=== PATIENT | male | born 1970 | race Caucasian/White ===

== ENCOUNTER → 2025-01-11 10:45 | Outpatient (BNV) | payer OTHER, SELFPAY | PROVIDERS: Visit Provider Psychiatry & Neurology Psychiatry | DX: F33.2 Major depressive disorder, recurrent severe without psychotic features (principal); F34.89 Other specified persistent mood disorders; F63.89 Other impulse disorders; F43.10 Post-traumatic stress disorder, unspecified; F12.90 Cannabis use, unspecified, uncomplicated | CPT/HCPCS: 99214 ==

== ENCOUNTER → 2025-01-13 07:22 | Outpatient (REF) | payer OTHER, SELFPAY ==
--- OUTSIDE RECORDS SUMMARY | 2025-01-13 07:25 | XMS_ITS | Clinical Summary ---
Author Organization [facility] [address] [place] [address] [place] [phone] Phone Care Team Providers Care Circuit Board Assembler Name Role Phone Braden Lane MD Primary Care Provider [phone] Allergies No known active allergies Medications tadalafiL (Cialis) 10 mg tabletIndicatio ns:Low serum testosterone Take 1 tablet (10 mg total) by mouth 1 (one) time each day if needed for erectile dysfunction. 6 tablet 1 08/27/19 25 Active Additional Information Patient not taking.Reported on 12/21/2024 sertraline (ZOLOFT) 100 mg tablet Take 2 tablets (200 mg total) by mouth 1 (one) time each day. 180 tablet 1 09/10/19 25 Active fluticasone propionate (FLONASE) 50 mcg/actuation nasal spray Administer 2 sprays into each nostril 1 (one) time each day. 16 g 2 11/16/19 25 Active predniSONE (DELTASONE) 10 mg tablet Take 3 tabs for 3 days, take 2 tabs for 3 days, take 1 tab for 3 days 18 tablet 12/22/19 25 Active carboxymethylce llulose 1 % ophthalmic solution Administer 1 drop into both eyes 2 (two) times a day. 3 mL 12/22/19 25 2024 Active hydrOXYzine HCL (ATARAX) 25 mg tablet Take 1 tablet (25 mg total) by mouth every 8 (eight) hours if needed for anxiety. 60 each 12/22/19 25 2024 Active cetirizine-pseu doephedrine (ZyrTEC-D) 5-120 mg per 12 hr tablet TAKE 1 TABLET BY MOUTH TWICE DAILY 60 tablet 5 12/29/19 25 Active loratadine (CLARITIN) 10 mg tablet Take 1 Tablet by mouth daily for 180 days. 12/04/19 24 2024 Discontinued cetirizine-pseu doephedrine (ZyrTEC-D) 5-120 mg per 12 hr tablet Take by mouth. Take 1 Tablet by mouth 2 times daily for 360 days. 12/04/19 24 2024 Discontinued cetirizine-pseu doephedrine (ZyrTEC-D) 5-120 mg per 12 hr tablet Take 1 tablet by mouth 2 (two) times a day. 12/04/19 24 2024 Discontinued(D uplicate order) fluticasone propionate (FLONASE) 50 mcg/actuation nasal spray Administer 2 sprays into each nostril 2 (two) times a day. 12/04/19 24 2024 Discontinued(D uplicate order) Active Problems Problem Noted Date Diagnosed Date Depression 06/03/2023 Hyperlipidemia 06/03/2023 Low serum testosterone 06/03/2023 Severe obesity (BMI 35.0-39. 9) with comorbidity (CMS/[facility] V24, CMS/[facility] V28) 07/15/2016 Folliculitis 07/15/2016 Encounters Date Type Department Care Team Description 12/21/2024 11:30 AM EDT Office Visit Adult Medicine [address] [phone] Stella Quinn NP Facial swelling (Primary Dx); Depression, unspecified depression type; Erectile dysfunction, unspecified erectile dysfunction type; Anxiety 12/21/2024 Nurse Triage Adult Medicine [address] [phone] MD 12/20/2024 Telephone Adult Medicine [address] [phone] Mago Cazares RN 12/20/2024 Nurse Triage Adult Medicine [address] [phone] Braden Laen MD from Last 3 Months Social History Tobacco Use Types Packs/Day Years Used Date Smoking Tobacco: Never Smokeless Tobacco: Never Alcohol Use Standard Drinks/Week Comments Not Asked 0 (1 standard drink = 0.6 oz pur e alcohol) Housing Instability Answer Date Recorde d Are you worried that in the next 2 months you may not have stable housing? No 06/09/2024 Food Access & Nutrition Answer Date Rec orded Do you have access to a vari ety of food including fruits and vegetables? Yes 06/09/2024 Access to Healthcare Answer Date Record ed Within the last 3 months, ho w many times did you visit the emergency department for your medical care? 0 06/09/2024 Health Literacy Answer Date Recorded How often do you need to hav e someone help you when you read instructions, pamphlets, or other written material from your doctor or pharmacy? Never 06/09/2024 Caregiver: How often do you need to have someone help you when you read instructions, pamphlets, or other written material from your doctor or pharmacy? Not on file 06/09/2024 Financial Risk Answer Date Recorded How hard is it for you to pa y for the very basics like food, housing, medical care, and air conditioning / heating? Not very hard 06/09/2024 Transportation Answer Date Recorded Has the lack of transportati on kept you from meetings, work, or from getting things needed for daily living? No Has the lack of transportati on kept you from medical appointments or from getting medications? No 06/09/2024 Social Isolation Answer Date Recorded How often do you feel lonely or isolated from th ose around you? Rarely 06/09/2024 Food Risk Answer Date Recorded Within the past 12 months we worried whether our food would run out before we got money to buy more. Never true 06/09/2024 Within the past 12 months th e food we bought just didn't last and we didn't have money to get more. Never true 06/09/2024 Dependent Care Answer Date Recorded Do you need help finding or paying for care for your loved ones. For example, early childhood education coordinator or elderly care for an older adult? No 06/09/2024 Education Answer Date Recorded Do you think completing more education or training, like finishing a GED, going to college, or learning a trade, would be helpful for you? N/A 06/09/2024 Employment and Income Answer Date Recor ded During the last four weeks, have you been actively looking for work? No 06/09/2024 Living Situation Answer Date Recorded What is your living situation? Unrecognized valu e 06/09/2024 Sex and Gender Information Value Date Recorded Sex Assigned at Not on file Legal Sex Male 4:47 AM EST Gender Identity Not on file Sexual Orientation Not on file Obstetrics History Last Filed Vital Signs Vital Sign Reading Time Taken Comments Blood Pressure 117/81 12/21/2024 11:37 AM EDT Pulse 60 12/21/2024 11:37 AM EDT Temperature 35.9 C (96.7 F) 12/21/2024 11:37 AM EDT Respiratory Rate 14 12/21/2024 11:37 AM EDT Oxygen Saturation 97% 12/21/2024 11:37 AM EDT Inhaled Oxygen Concentration - - Weight 97.2 kg (214 lb 3.2 oz) 12/21/2024 11:37 AM EDT Height 167.6 cm (5' 6 ) 12/21/2024 11:37 AM EDT Body Mass Index 34.57 12/21/2024 11:37 AM EDT Plan of Treatment Upcoming Encounters Date Type Department Care Team (Late st Contact Info) Description 01/24/2025 4:00 PM EST Office Visit Adult Medicine [address] [phone] MD [address] [place] [address] Health Maintenance Due Date Last Done Comments Colorectal Cancer Screening: Colonoscopy 1972 DTaP,Tdap,and Td Vaccines (1 - Tdap) 01/29/1991 Hepatitis B Vaccines (1 of 3 - 19+ 3-dose series) 01/29/1991 Pneumococcal Vaccine: 50+ Years (1 of 1 - PCV) 01/29/2022 RSV Immunization Adult Patients (1 - Risk 50-74 years 1-dose series) 01/29/2022 Zoster Vaccines (1 of 2) 01/29/2022 HIV Screening 03/03/2022 Hepatitis C Screening 03/03/2022 COVID-19 Vaccine (1 - 2023-2 5 season) 2024 Influenza Vaccine (#1) 2024 Social Influencers of Health Screening 06/09/2025 06/09/2024 Cholesterol Screening (Lipid Panel) 08/23/2029 08/23/2024, 06/02/2023 Depression Screening Completed 06/09/2024 HIB Vaccines Aged Out No longer eligi ble based on patient's age to complete this topic HPV Vaccines Aged Out No longer eligi ble based on patient's age to complete this topic Hepatitis A Vaccines Aged Out No long er eligible based on patient's age to complete this topic IPV Vaccines Aged Out No longer eligi ble based on patient's age to complete this topic MMR Vaccines Aged Out No longer eligi ble based on patient's age to complete this topic Meningococcal ACWY Vaccine Aged Out N o longer eligible based on patient's age to complete this topic Meningococcal B Vaccine Aged Out No l onger eligible based on patient's age to complete this topic RSV Immunization Patients Under 20 months Aged Out No longer eligible b ased on patient's age to complete this topic Varicella Vaccines Aged Out No longer eligible based on patient's age to complete this topic Procedures Procedure Name Priority Date/Time Associated Diagnosis Comments LIPID PANEL WITH REFLEX TO DIRECT LDL Routine 08/23/2024 7:46 AM EDT Hypercholesterolemi a from Last 3 Months or Most Recently Relevant to Health Maintenance Results * (ABNORMAL) Lipid panel with reflex to direct LDL (08/23/2024 7:46 AM EDT) Cholesterol 260(H) 0 - 200 mg/dL LAB CHEMISTRY METHOD 08/23/2024 10:01 AM EDT [facility] Triglycerides 125 0 - 150 mg/dL LAB CHEMISTRY METHOD 08/23/2024 10:01 AM EDT [facility] HDL 43 >=40 mg/dL LAB CHEMISTRY [facility] LDL Calculated 192(H) 0 - 100 mg/dL LAB CHEMISTRY METHOD 08/23/2024 10:01 AM [facility] VLDL Cholesterol Josiah 25 mg/dL LAB CHEMISTRY METHOD 08/23/2024 10:01 AM EDT [facility] Non HDL Chol. (LDL+VLDL) 217(H) <145 mg/dL LAB CHEMISTRY METHOD 08/23/2024 10:01 AM EDT [facility] Chol/HDL Ratio 6.0(H) 0.0 - 4.4 LAB CHEMISTRY METHOD 08/23/2024 10:01 AM EDT [facility] Blood Venous blood specimen / Unknown Venipuncture / Unknown 08/23/2024 7:46 AM EDT 08/23/2024 9:[address] MD LAB BLOOD ORDERABLES Final Resu lt [facility] ([facility] [address] [place] [address], from Last 3 Months or Most Recently Relevant to Health Maintenance Insurance [facility] Care Teams Circuit Board Assembler Relationship Specialty Start Date End Date Braden Lane MD [address] [place] [phone] PCP - General Internal Medicine 02/02/24
--- NOTE | 2025-01-13 07:39 | ECG_ITS ---
Test Reason : check qt Blood Pressure : */* mmHG Vent. Rate : 71 BPM Atrial Rate : 71 BPM P-R Int : 174 ms QRS Dur : 76 ms QT Int : 372 ms P-R-T Axes : 44 35 44 degrees QTcB Int : 404 ms Normal sinus rhythm Normal ECG No previous ECGs available Referred By: Paula Partida Electronically Signed By: SAMMY VINCENT MD
[2025-01-13 07:41] LABS: MANUAL DIFF FLAG NO
[2025-01-13 07:47] LABS: Hematocrit 43.3 % (42.0-52.0); Hemoglobin 14.0 g/dl (14.0-18.0); Imm Gran Abs Auto 0.03 X10*3/uL (0.00-0.03); Imm Gran Pct Auto 0.4 % (0.0-0.4); Lymphocytes Absolute Auto 1.2 X10*3/uL (1.2-4.9); Mean Corpuscular HGB Conc 32.3 g/dl (31.0-36.0); Mean Corpuscular Hemoglobin 27.4 pg (27.0-33.0); Mean Corpuscular Volume 84.7 fL (80.0-98.0); NRBC Abs Auto 0.000 X10*3/uL (0.0-0.012); NRBC Pct Auto 0.0 /100WBC (0.0-0.2); Platelet Count 190 X10*3/uL (160-400); Red Blood Count 5.11 X10*6/uL (4.60-5.80); White Blood Count 7.3 X10*3/uL (4.8-10.8)
[2025-01-13 08:08] LABS: Alanine Aminotransferase 25 U/L (0-40); Albumin Level 4.5 g/dL (3.5-5.0); Alkaline Phosphatase 86 U/L (39-117); Anion Gap 15 (12-20); Aspartate Amino Transferase 26 U/L (5-37); Blood Urea Nitrogen 22 mg/dL (9-16); Calcium 9.1 mg/dL (8.4-10.2); Carbon Dioxide 23 mmol/L (22-29); Chloride 107 mmol/L (96-108); Cholesterol 209 mg/dL (<200); Estimated Glomerular Filt Rate > 60; HDL Cholesterol 49 mg/dL (>40); Iron 64 mcg/dL (45-160); Magnesium 2.0 mg/dL (1.6-2.6); Percent Iron Saturation 20 % (15-50); Potassium 4.5 mmol/L (3.3-5.1); Sodium 140 mmol/L (135-145); Total Iron Binding Capacity 319 mcg/dL (228-428); Total Protein 7.4 g/dL (6.5-8.0); Triglycerides 132 mg/dL (<150); Unsaturated Iron Binding 255 ug/dL
[2025-01-13 08:22] LABS: Prostate Specific Antigen 0.78 ng/mL (<0.05-4.0)
[2025-01-13 08:23] LABS: Ferritin 169 ng/mL (20-250); Free T4 (Free Thyroxine) 0.79 ng/dL (0.71-1.85); Thyroid Stimulating Hormone 3.33 uIU/mL (0.32-4.0)
[2025-01-13 08:36] LABS: Folate 6.9 ng/mL (> or = 4.0)
[2025-01-18 18:43] LABS: Testosterone, Free 61.0 pg/mL (35.0-155.0)
== END ==
LOC: HO.CARD 07:22
PROVIDERS: PCP Internal Medicine; Visit Provider Psychiatry & Neurology Psychiatry
DX: Z13.6 Encounter for screening for cardiovascular disorders (principal); Z12.5 Encounter for screening for malignant neoplasm of prostate; F34.89 Other specified persistent mood disorders; F63.89 Other impulse disorders; Z13.1 Encounter for screening for diabetes mellitus
CPT/HCPCS: 36415; 80053; 80061; 82306; 82550; 82728; 82746; 83036; 83090; 83540; 83735; 83921; 84146; 84153; 84402; 84403; 84425; 84439; 84443; 84630; 85025; 85652; 93005

== ENCOUNTER → 2025-01-13 07:39 | Outpatient (BNV) | payer OTHER, SELFPAY | PROVIDERS: PCP Internal Medicine; Visit Provider Internal Medicine Cardiovascular Disease | DX: Z13.6 Encounter for screening for cardiovascular disorders (principal) | CPT/HCPCS: 93010 ==

== ENCOUNTER 2025-01-21 10:30 | Outpatient (RCR) | payer OTHER, SELFPAY ==
[2024-12-30 12:05] VITALS: BP 120/68; PULSE 76; TEMP 36.3
[2024-12-30 12:08] VITALS: BMI 32.7
--- NOTE | 2024-12-30 16:07 | HO.PHP ---
Clients case was opened and reviewed in teams.
--- NOTE | 2025-01-01 00:19 | HO.PS.ADMBH ---
HPI Date of Service: 12/31/24 Chief Complaint: depression,PTSD Sources of Information: patient interviewed, chart reviewed and crisis/core team assessment reviewed HPI Narrative: Patient is a , employed 54 yo male who was referred from [facility] crisis for struggles with anxiety in the context of psychosocial stressors at at home and the workplace. He reports a history of occasional anxiety and depressive symptoms and long standing issues with anger, impulsive gambling and says he has relied on daily cannabis use to manage. 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 Does it is a high stress job and his boss is atrocious . Stressors include deterioration of his marriage and adversarial relationship with his 17 yo son whom he describes as oppositional and lazy . He shares that my says I changed noting that he lost 70 lb in past few months which she attributes to stress. She would say I'm angry because she hates me and doesnt want to touch me or love me . He also complains that most of his coworkers and supervisors hate him too. They would also say I', defensive and angry, but has to be loud because I am a little shandra yelling so I need to talk louder to be heard . He endorses passive SI only a few times in the past ever. Dneies any current SI, urge, plan intention. DEnies any history of AH or VH. No history of psychosis or manic symptoms, aside from chronic struggles with low frustation tolerance and anger. Impulsive behaviors are chronic and persistent regardless of mood state. Has been dealing with some medical issues with his PCP who referred him to endocrinology about year and a half ago due to low testosterone. Use them referred for sleep study diagnosed with mild obstructive sleep apnea but was unable to tolerate CPAP so has been sleeping with his head elevated. Past Psychiatric History: No prior IPLOC, PHP, respite, detox/rehab admissions SA: denies SIB: denies Aggression or antisocial behaviors: denies (although says there is a lot of verbal aggression and arguemnts between himself and 17 yo son. Impulsive behaviors, gambling Pertinent developmental hx: Previous diagnoses: Psychiatrist: none Therapist: PCP: Previous trials: CURRENT MEDICATIONS: [facility] Medical History (Updated 01/03/25 @ 19:07 by Paula Partida MD) High cholesterol Prediabetes Sleep apnea Low testosterone Narrative: Overall healthy No chronic health conditions No h/o medical hospitalization for illness or injury Surgeries: denies Seizures: denies Concussions/TBI: x 2 or 3, in childhood - LOC x2 hit wall, fall from seesaw can you fix that from Ht:?5'4 Wt:208 lbs ALL:hayfever Family History: Depression anxiety and addiction in the family His father on are couch ( probably intentional overdose Social History: Lives at home with and 2 sons Diagnostics Vital Signs (24Hr): BMI result Body Mass Index 32.7 Meds/Allergies Meds Home Medications ?Medication ?Instructions ?Recorded ?Confirmed ?Type cetirizine 5 mg-pseudoephedrine ER 1 tab PO BID 12/30/24 12/30/24 History 120 mg tablet,extended release,12hr fluticasone propionate 50 See Rx Instructions .Route .COMPLEX 12/30/24 12/30/24 History mcg/actuation nasal spray,suspension hydroxyzine HCl 25 mg tablet 25 mg PO TID Anxiety 12/30/24 12/30/24 History prednisone 10 mg tablet 10 mg PO BID 12/30/24 12/30/24 History sertraline 100 mg tablet 200 mg PO DAILY 12/30/24 12/30/24 History Allergies Allergies Allergy/AdvReac Type Severity Reaction Status Date / Time No Known Allergies Allergy Verified 12/30/24 12:04 Mental Status Exam Mental Status Exam Narrative: .Alert, oriented, in no acute distress. Calm, cooperative, engaged. No psychomotor agitation or neurovegetative retardation. Eye contact maintained. Mood depressed, affect constricted. Speech normal. Thought process linear, coherent. Thought content related to stressors, transient hopelessness, denies SI or HI. No paranoia or delusional content elicited. No evidence of psychosis. Insight and judgment - fair but adequate. Assessment & Plan Assessment & Plan (1) MDD (major depressive disorder), recurrent severe, without psychosis: Status: Acute Code(s): F33.2 - Major depressive disorder, recurrent severe without psychotic features (2) Other specified persistent mood disorders: Status: Acute Code(s): F34.89 - Other specified persistent mood disorders (3) Other impulse disorders: Status: Acute Code(s): F63.89 - Other impulse disorders Assessment and Plan: r/o ADHDr/o other ICD (4) PTSD (post-traumatic stress disorder): Status: Acute Code(s): F43.10 - Post-traumatic stress disorder, unspecified (5) Cannabis use disorder: Status: Acute Code(s): F12.90 - Cannabis use, unspecified, uncomplicated Plan Admit to [facility] VS reviewed: afebrile, BP 120/68;?76 bpm start Wellbutrin XL 150 mg qam start Trileptal 150 mg BID continue other regular medications Routine lab work as indicated EKG, routine for baseline QTc for medication considerations as indicated UDS as indicated [facility] reviewed Continue to monitor as per protocol Patient educated on: diagnosis, medication risk/benefits and substance abuse Informed Consent: understands Reason for continued partial hosp. stay Substantial Risk for: inability to function and med/psych decompensation Certification I certify that partial hospital treatment is medically necessary due to the symptoms and problems resulting from the patient's mental illness and the failure to treat the patient at the partial hospital level of care would likely result in the patient requiring inpatient psychiatric care which could not be prevented at a less intensive level of care. Time Spent With Patient Time: Total time managing care of this patient today __90__ minutes.
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
[2025-01-07 14:10] VITALS: BP 136/80; PULSE 84
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
--- NOTE | 2025-01-12 07:57 | HO.PHPPROGNO ---
Subjective Subjective Date of Service: 01/12/25 Reason For Visit: depression,PTSD Interim History: Patient requesting to be seen, having high level of anxiety with upcoming court date hearing on Friday. I'm not ready to leave, I'm anxious about everything anticipating discharge from program tomorrow but feeling he is not ready being still amidst medication adjustments with the mood stabilizer. He titrate the evening dose of oxcarbazepine 5 days ago (so now is at 300 mg in am and 450 mg at night) but has not been able to yet increase the morning dose as he notices feeling some spaciness and like being high feeling a little upon waking and more noticeable about 1.5 hrs after his AM dose. We agree to hold off further titration(or any other major medication adjustments until after his court date) to avoid any potential adverse effects or sedation especially for Friday, in court. Zoloft lowered to 100 mg, without issue and would like to continue taper due to ED that has occurred since dose over 50 mg. Continues to stay at hotel, anxious about costs, anxious to be with his family. Worries about continuance of the R.O and not having a place to stay or feeling disconnected from his life. I've been trying to focus on doing everything right . Is on day 14 of not smoking marijuana and relays staying committed to staying off of it. Denies any alcohol or drug use. He has been consistent with his medications, eating, and going to bed by 10pm. He says routines are very difficult for him and is pleased that Wellbutrin might be helpful for some of his ADHD issues. He is attending an anger management course online and anticipates getting a certificate in time for court Friday. He shares concerns that I haven't addressed any of the stuff I came here (to [facility]) to address originally... most of my problems were stemming from work. Trouble with my boss, was having trouble in a lot of the (social) dynamics... I go from 0 to 100, all the time and then just lose it. I also got bad ADHD... it causes problems. There's also been recent changes to his work responsibilities with additional stress added to his workload, like having to travel/commute further away for work has been a major stressor and feels it was truly the work stress that lead to everything blowing up on me at home . Medication Compliance: Yes Side effects from medications: Yes (as noted) Attending Groups: Yes Review of Systems Acute medical concerns: No Mental Status Exam Mental Status Exam Narrative: .Alert, oriented, in no acute distress. Calm, cooperative, engaged, appropriate. No psychomotor agitation or neurovegetative retardation. Eye contact maintained. Mood anxious, depressed, affect intense, reactive, moments of tearfulness, irritability. Speech normal. Thought process ruminative, linear, coherent. Thought content related to stressors, transient hopelessness, denies SI or HI. No gross paranoia or delusional content elicited. No evidence of psychosis. Insight and judgment - fair but adequate. Diagnostics Vital Signs (24Hr): BMI result Body Mass Index 32.7 Assessment & Plan Assessment & Plan (1) MDD (major depressive disorder), recurrent severe, without psychosis: Status: Acute Code(s): F33.2 - Major depressive disorder, recurrent severe without psychotic features (2) Other specified persistent mood disorders: Status: Acute Code(s): F34.89 - Other specified persistent mood disorders (3) Other impulse disorders: Status: Acute Code(s): F63.89 - Other impulse disorders Assessment and Plan: r/o ADHD r/o IED or other ICD (4) PTSD (post-traumatic stress disorder): Status: Acute Code(s): F43.10 - Post-traumatic stress disorder, unspecified (5) Cannabis use disorder: Status: Acute Code(s): F12.90 - Cannabis use, unspecified, uncomplicated Assessment and Plan: in early remission Plan extend PHP - given severity of symptoms and complicating factors, will need more time at program to continue with medication changes continue Wellbutrin XL 150 mg qam (will continue to titrating over weekend, avoiding any med changes prior to court on Friday) continue Trileptal 300 mg/450 mg (will continue to titrating over weekend, avoiding any med changes prior to court on Friday) - we also discussed possibly switching medications if he continues to have issues with side effects, although presently I am hopeful the current SE are mild and I anticipate will olegario kori since we will not move up further on the medication for the next few days taper ZOloft (currently at 100 mg qd) will lower to 75 mg/d this weekend start guanfacine ER 1 mg qd in afternoon today, if not sedating will take in AM with Wellbutrin continue clonazepam 0.5 mg qd prn anxiety (may take 2nd dose for tomorrow and Friday as needed) continue other regular medications Routine lab work - slip given today, will also check testosterone and PSA as his PCP was going to check these as well EKG, routine for baseline QTc for medication pending UDS as indicated VS reviewed: afebrile, BP 120/68;?76 bpm Continue to monitor Patient educated on: diagnosis, medication risk/benefits, substance abuse and therapeutic strategies (discussed also continuing in a longer term anger management program, reconsider marriage counseling (and discussed perceived barrier)) Informed Consent: understands Reason for contiued partial hosp. stay Substantial Risk for: rapid decompensation and med/psych decompensation Certification I certify that partial hospital treatment is medically necessary due to the symptoms and problems resulting from the patient's mental illness and the failure to treat the patient at the partial hospital level of care would likely result in the patient requiring inpatient psychiatric care which could not be prevented at a less intensive level of care. Total time managing care of this patient today __40__ minutes. Discharge Plan Discharge Attending provider: Paula Partida Medications: New bupropion HCl [Wellbutrin XL] 150 mg tablet extended release 24 hr 150 mg PO QAM Qty: 14 0RF oxcarbazepine 300 mg tablet 150 - 300 mg PO BID Qty: 30 0RF clonazepam [Klonopin] 0.5 mg tablet 0.5 mg PO DAILY PRN (Reason: anxiety) Qty: 10 0RF No Action cetirizine-pseudoephedrine 5-120 mg tablet extended release 12 hr 1 tab PO BID prednisone 10 mg tablet 10 mg PO BID Rx Instructions: Filled 11/20/24 #18 tabs for 9 day taper down. sertraline 100 mg tablet 200 mg PO DAILY Rx Instructions: Take 2 tabs daily hydroxyzine HCl 25 mg tablet 25 mg PO TID fluticasone propionate 50 mcg/actuation spray,suspension See Rx Instructions .ROUTE .COMPLEX Rx Instructions: SHAKE LIQUID AND USE 2 SPRAYS IN EACH NOSTRIL 1 TIME EACH DAY Print Language: Bulgarian
[2025-01-12 15:00] LABS: Cannabinoid Screen Urine POSITIVE (Not Detect)
--- NOTE | 2025-01-20 13:03 | PC.NURSE ---
Dr. Partida is aware of patient's lab results including: BUN 22, FBS 121, Cholesterol 209, LDL 134, Vit D 28.5, Lympt Pct auto 16.4. No new orders.
--- NOTE | 2025-01-21 10:09 | P.PNPSP_ITS ---
Subjective Subjective Date of Service: 01/21/25 Reason For Visit: depression,PTSD Interim History: From admission note: New line Patient is a , employed 54 yo male who was referred from [facility] crisis for struggles with anxiety in the context of psychosocial stressors at at home and the workplace. He reports a history of occasional anxiety and depressive symptoms and long standing issues with anger, impulsive gambling and says he has relied on daily cannabis use to manage. 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 Does it is a high stress job and his boss is atrocious . Stressors include deterioration of his marriage and adversarial relationship with his 17 yo son whom he describes as oppositional and lazy . He shares that my says I changed noting that he lost 70 lb in past few months which she attributes to stress. She would say I'm angry because she hates me and doesnt want to touch me or love me . He also complains that most of his coworkers and supervisors hate him too. They would also say I', defensive and angry, but has to be loud because I am a little shandra yelling so I need to talk louder to be heard . He endorses passive SI only a few times in the past ever. Dneies any current SI, urge, plan intention. DEnies any history of AH or VH. No history of psychosis or manic symptoms, aside from chronic struggles with low frustation tolerance and anger. Impulsive behaviors are chronic and persistent regardless of mood state. Has been dealing with some medical issues with his PCP who referred him to endocrinology about year and a half ago due to low testosterone. Use them referred for sleep study diagnosed with mild obstructive sleep apnea but was unable to tolerate CPAP so has been sleeping with his head elevated. Past Psychiatric History: No prior IPLOC, PHP, respite, detox/rehab admissions Cristian continues to struggle with difficulties and his marriage in work and even though he will be discharged today he is going to try to return for another extended visit. At current medications were reviewed and continued. A 1 month prescription will be sent Review of Systems Review of Systems Yes all other systems are reviewed and are negative Mental Status Exam Mental Status Exam Narrative: In today's visit he is alert, oriented and pleasant. Normal speech. Good eye contact. Affect is appropriate and varied. No signs of psychosis. No SI/HI. Cognitively intact. Judgment is intact. He moves all limbs. No gait abnormalities. Diagnostics Vital Signs (24Hr): BMI result Body Mass Index 32.7 Labs Labs: Reviewed Assessment & Plan Assessment & Plan (1) MDD (major depressive disorder), recurrent severe, without psychosis: Status: Acute Code(s): F33.2 - Major depressive disorder, recurrent severe without psychotic features Plan Will be discharged to outpatient therapist but he will be re-applying for another admission here. Patient educated on: substance abuse Certification I certify that partial hospital treatment is medically necessary due to the symptoms and problems resulting from the patient's mental illness and the failure to treat the patient at the partial hospital level of care would likely result in the patient requiring inpatient psychiatric care which could not be prevented at a less intensive level of care. Total time managing care of this patient today ____ minutes. Discharge Plan Discharge Attending provider: Paula Partida Medications: New clonazepam [Klonopin] 0.5 mg tablet 0.5 mg PO BID PRN (Reason: anxiety) 30 Days Qty: 30 0RF bupropion HCl [Wellbutrin XL] 300 mg tablet extended release 24 hr 300 mg PO QAM 30 Days Qty: 30 0RF hydroxyzine HCl 25 mg tablet 25 mg PO BID PRN (Reason: anxiety) 30 Days Qty: 30 0RF oxcarbazepine 300 mg tablet 450 mg PO BID 30 Days Qty: 90 0RF Continued cetirizine-pseudoephedrine 5-120 mg tablet extended release 12 hr 1 tab PO BID 30 Days Qty: 60 0RF Changed oxcarbazepine 300 mg tablet 450 mg PO BID Qty: 90 0RF hydroxyzine HCl 25 mg tablet 25 mg PO TID PRN (Reason: Anxiety) 30 Days Qty: 30 0RF fluticasone propionate 50 mcg/actuation spray,suspension 1 spray intranasal BID 30 Days Qty: 16 0RF Rx Instructions: 1 spray intranasally; bupropion HCl [Wellbutrin XL] 150 mg tablet extended release 24 hr 300 mg PO QAM Qty: 30 0RF clonazepam [Klonopin] 0.5 mg tablet 0.5 mg PO BID PRN (Reason: anxiety) Qty: 30 0RF Discontinued prednisone 10 mg tablet 10 mg PO BID Rx Instructions: Filled 11/20/24 #18 tabs for 9 day taper down. sertraline 100 mg tablet 200 mg PO DAILY Rx Instructions: Take 2 tabs daily Stand Alone Forms: Patient Portal Discharge page Print Language: Mongolian
== END 2025-01-21 23:59 | disposition home or self-care (01) ==
LOC: HO.PHPA 10:30
PROVIDERS: Visit Provider Psychiatry & Neurology Psychiatry
DX: F33.2 Major depressive disorder, recurrent severe without psychotic features (principal); F34.89 Other specified persistent mood disorders; F63.89 Other impulse disorders; F43.10 Post-traumatic stress disorder, unspecified; F12.90 Cannabis use, unspecified, uncomplicated; Z79.899 Other long term (current) drug therapy
CPT/HCPCS: 80307; 90791; 90853

== ENCOUNTER 2025-03-03 06:57 | Outpatient (REF) | payer OTHER, SELFPAY ==
--- OUTSIDE RECORDS SUMMARY | 2025-03-03 07:01 | XMS_ITS | Encounter Summary ---
Author Organization [facility] [place] [address] Care Team Providers Care Neon Sign Servicer Name Role Phone Braden Lane MD Primary Care Provider [phone] Encounter Details Date Type Department Care Team ([facility] st Contact Info) Description 01/18/2025 Results Follow-Up Adult Medicine [facility] [address] [place] [address] MD [address] [place], [place] Social History Tobacco Use Types Packs/Day Years [...] care for your loved ones. For example, children librarian or elderly care for an older adult? [...] on file Sexual Orientation Not on file documented as of this encounter Plan of Treatment Upcoming Encounters Date Type Department Care Team (Late st Contact Info) Description 2026 9:00 AM EST Office Visit Adult Medicine [address] [phone] MD [address] [place] [address] documented as of this encounter Visit Diagnoses Not on filedocumented in this encounter Additional Health Concerns Assessment Noted Time PHQ-9 Depression Total Score: 0 06/10/19 25 7:04 PM EDT documented as of this encounter Care Teams Neon Sign Servicer Relationship Specialty Start Date End Date Braden Lane MD [address] [place] [address] PCP - General Internal Medicine 02/02/24 documented as of this encounter
--- OUTSIDE RECORDS SUMMARY | 2025-03-03 07:01 | XMS_ITS | Clinical Summary ---
Author Organization [facility] [address] [place] [address] [place] [phone] Phone Care Team Providers Care Weekend Caregiver Name Role Phone Braden Lane MD Primary Care Provider [phone] Allergies No known active allergies Medications tadalafiL (Cialis) 10 mg tabletIndication s:Low serum testosterone Take 1 tablet (10 mg total) by mouth 1 (one) time each day if needed for erectile dysfunction. 6 tablet 1 5 Active Additional Information Patient not taking.Reason: completed, Reported on 01/26/2025 hydrOXYzine HCL (ATARAX) 25 mg tablet Take 1 tablet (25 mg total) by mouth every 8 (eight) hours if needed for anxiety. 60 each 5 Active Additional Information Patient not taking.Reported on 01/26/2025 cetirizine-pseud oephedrine (ZyrTEC-D) 5-120 mg per 12 hr tablet TAKE 1 TABLET BY MOUTH TWICE DAILY 60 tablet 5 5 Active Additional Information Patient not taking.Reported on 01/26/2025 clonazePAM (KlonoPIN) 0.5 mg tablet Take 1 tablet (0.5 mg total) by mouth 2 (two) times a day if needed. for anxiety 5 Active OXcarbazepine (TRILEPTAL) 300 mg tablet Take 1 tablet (300 mg total) by mouth 2 (two) times a day. 5 Active buPROPion XL (WELLBUTRIN XL) 150 mg 24 hr tablet Take 1 tablet (150 mg total) by mouth 1 (one) time each day in the morning. Active fluticasone propionate (FLONASE) 50 mcg/actuation nasal spray Administer 2 sprays into each nostril 1 (one) time each day. 16 g 2 Active Active Problems Problem Noted Date Diagnosed Date Depression 06/03/2023 Hyperlipidemia 06/03/2023 Low serum testosterone 06/03/2023 Severe obesity (BMI 35.0-39.9) with comorbidity 07/15/2016 Folliculitis 07/15/2016 Encounters Date Type Department Care Team Description 02/15/2025 10:00 AM EST Office Visit [address] [phone] Regina Pacheco PA Depression, unspecified depression type (Primary Dx); Psychosocial stressors 02/14/[address] [phone] MD 02/11/[address] [phone] MD 01/26/2025 1:30 PM EST Office Visit [address] [phone] Stella Quinn NP Encounter for annual physical exam (Primary Dx); Hyperlipidemia, unspecified hyperlipidemia type; Depression, unspecified depression type; Nasal congestion; Bilateral shoulder pain, unspecified chronicity; Screen for colon cancer 01/18/2025 Results Follow-Up [address] [phone] MD 12/21/2024 11:30 AM EDT Office Visit [address] [phone] Stella Quinn NP Facial swelling (Primary Dx); Depression, unspecified depression type; Erectile dysfunction, unspecified erectile dysfunction type; Anxiety 12/21/2024 Nurse Triage Adult [address] [phone] MD 12/20/2024 Telephone Adult [address] [phone] Mago Cazares RN 12/20/2024 Nurse Triage Adult [address] [phone] MD from Last 3 Months Social History Tobacco Use Types Packs/Day Years Used Date Smoking Tobacco: Never Smokeless Tobacco: Never Tobacco Cessation:Counseling Given: Not Answered Alcohol Use Standard Drinks/Week Comments Not Asked [...] care for your loved ones. 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 [...] on file Sexual Orientation Not on file Last Filed Vital Signs Vital Sign Reading Time Taken Comments Blood Pressure 120/74 02/15/2025 9:43 AM EST Pulse 86 02/15/2025 9:43 AM EST Temperature 36.6 C (97.8 F) 02/15/2025 9:43 AM EST Respiratory Rate 15 01/26/2025 12:55 PM EST Oxygen Saturation 99% 02/15/2025 9:43 AM EST Inhaled Oxygen Concentration - - Weight 98.7 kg (217 lb 9.6 oz) 02/15/2025 9:43 A M EST Height 167.6 cm (5' 5.98 ) 02/15/2025 9:43 AM ES T Body Mass Index 35.14 02/15/2025 9:43 AM EST Plan of Treatment Upcoming Encounters Date Type Department Care Team (Late st Contact Info) Description 2026 9:00 AM EST Office Visit Adult Medicine [address] [phone] MD [address] [place] [address] (work) Health Maintenance Due Date Last Done Comments Colorectal Cancer Screening: Colonoscopy 1970 Drug Screen 1972 Non-Opioid Controlled Substance Agreement 1972 DTaP,Tdap,and Td Vaccines (1 - Tdap) 01/29/1991 Hepatitis B Vaccines (1 of 3 - 19+ 3-dose series) 01/29/1991 Pneumococcal Vaccine: 50+ Years (1 of 1 - PCV) 01/29/2022 RSV Immunization Adult Patients (1 - Risk 50-74 years 1-dose series) 01/29/2022 Zoster Vaccines (1 of 2) 01/29/2022 HIV Screening 03/03/2022 Hepatitis C Screening 03/03/2022 COVID-19 Vaccine (1 - 2024-2 6 season) 2024 Influenza Vaccine (#1) 2024 Social Influencers of Health Screening 06/09/2025 06/09/2024 Cholesterol Screening (Lipid Panel) 01/18/2030 01/18/2025, 08/23/2024, 06/02/2023 Depression Screening Completed 02/15/2025 HIB Vaccines Aged Out No longer eligi [...] Procedure Name Priority Date/Time Associated Diagnosis Comments HEMOGLOBIN A1C Routine 01/18/2025 8:09 AM EDT Elevated blood sugar LIPID PANEL WITH REFLEX TO DIRECT LDL Routine 01/18/2025 8:09 AM EDT High cholesterol from Last 3 Months Results * (ABNORMAL) Lipid panel with reflex to direct LDL (01/18/2025 8:09 AM EDT) Cholesterol 232(H) 0 - 200 mg/dL LAB CHEMISTRY METHOD 01/18/2025 9:12 AM EDT [facility] Triglycerides 112 0 - 150 mg/dL LAB CHEMISTRY METHOD 01/18/2025 9:12 AM EDT [facility] HDL 52 >=40 mg/dL LAB CHEMISTRY METHOD 01/18/2025 9:12 AM EDT [facility] LDL Calculated 158(H) 0 - 100 mg/dL LAB CHEMISTRY METHOD 01/18/2025 9:12 AM EDT [facility] Comment:Estimated LDL Calcul ated using equation: Total cholesterol - HDL cholesterol - (Triglycerides/5) VLDL Cholesterol Josiah 22.4 mg/dL LAB CHEMISTRY METHOD 01/18/2025 9:12 AM EDT [facility] Non HDL Chol. (LDL+VLDL) 180(H) <145 mg/dL LAB CHEMISTRY METHOD 01/18/2025 9:12 AM T [facility] Chol/HDL Ratio 4.5(H) 0.0 - 4.4 LAB CHEMISTRY METHOD 01/18/2025 9:12 AM T [facility] Blood Venous blood specimen / Unknown Venipuncture / Unknown 01/18/2025 8:09 AM EDT 01/18/2025 8:[address] MD LAB BLOOD ORDERABLES Final Resu lt [facility] [address] [place] [address], * Hemoglobin A1c (01/18/2025 8:09 AM EDT) Hemoglobin A1C 5.9 <6.5 % LAB CHEMISTRY METHOD 01/18/2025 11:06 AM EDT [facility] Mean Bld Glu Estim. 123 mg/dL LAB CHEMISTRY METHOD 01/18/2025 11:06 AM EDT [facility] Blood Venous blood specimen / Unknown Venipuncture / Unknown 01/18/2025 8:09 AM EDT 01/18/2025 8:[address]T us [address] MD LAB BLOOD ORDERABLES Final Resu lt [facility] [address] [place] [address], from Last 3 Months Insurance [facility] Care Teams Weekend Caregiver Relationship Specialty Start Date End Date Braden Lane MD [address] [place] [address] PCP - General Internal Medicine 02/02/24
--- OUTSIDE RECORDS SUMMARY | 2025-03-03 07:01 | XMS_ITS ---
Author Name [facility] Organization Unknown Care Team Organization Name Specialty Phone Email Start Date End Da te [facility] KULDEEP JILLIAN Primary Care 01/29/2022 4
--- OUTSIDE RECORDS SUMMARY | 2025-03-03 07:01 | XMS_ITS | Patient Health Record ---
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 Role Phone EVONMarthaSANDRA Unavailable Allergies No Known Allergies Reason For Referral Reason Please evaluate and treat Diagnosis 1 Fatigue, unspecified type (R53.83) Referral Organization [facility] judah Referring Provider First Name SANDRA Referring Provider Last Name EVON Thomas Referring Provider Speciality Family Med icine Referred Provider Specialty Family Medic ine Referral Priority Routine Referral Appointment Date 02/21/2025 Medications Medication SIG (Take, Route, Frequency, Duration) Notes Start Date End Date Status buPROPion HCl ER (XL) 150 MG Oral; Duration: 30 Days Acti ve Social History Tobacco Use: Social History Observation Description Date Details (start date - stop date) Never Smoker NA - NA Tobacco Control (Standard) Question Answer Notes Tobacco use: Nonsmoker Vital Signs Height 68 in 02/21/2025 Weight 197 lbs 02/21/2025 BMI 29.95 kg/m2 02/21/2025 Encounters Encounter Location Date Provider Diagnosis [facility] [address] [place] [address] 02/21/2025 SANDRA LOJA Fatigue, unspecified type R53.83 Assessments Encounter Date Diagnosis (ICD Code) Assessment Notes Treatment Notes Treatment Clinical Notes Section Notes 02/21/2025 Fatigue, unspecified type (ICD-10 - R53.83) First Work/School Note: 1 day You have been provided a school/work note for 1 day as requested. We encourage you to follow up with your primary care provider for ongoing evaluation and management TREATMENT PLAN The patient presents with fatigue of unknown etiology. The symptoms are quite nonspecific. Patient has chosen an asynchronous telemedicine visit to share these symptoms. The breadth of diagnosis and etiology of symptoms are very broad (metabolic, psychiatric, habits, sleep, medications, drugs, etc). A detailed history will ultimately be required likely in-person or at minimum with a video visit to help delineate reason for symptoms. In this limited type of visit, we can offer the patient bloodwork to help rule in or rule out common medical conditions that may be causing his symptoms. Complete lab work ordered and follow up in 2 weeks with your PCP or through a video visit to review labs. PATIENT EDUCATION: FATIGUE Fatigue means feeling very tired or lacking energy. It can be caused by too much or too little activity, stress, poor sleep, diet, medical problems, or emotional issues like depression. Treatment depends on the cause. At-home care: Get regular, balanced exercise with rest breaks. Get enough sleep. Eat healthy meals without skipping any. Limit caffeine, tobacco, and alcohol. Avoid medicines that cause fatigue, like some cold or allergy meds. When to call your doctor: If you develop new symptoms like fever or rash. If your fatigue worsens or doesn't improve. If you feel depressed, hopeless, or lose interest in usual activities. FIRST ASYNCHRONOUS ACUTE CARE VISIT Acute Care Visit: All subsequent visits for your concern addressed today must be conducted via video consultation. Further Management: If your symptoms do not improve, consider scheduling a follow-up video visit for further assessment, or an in-person visit for a more comprehensive evaluation. 02/21/2025 Other Follow the treatment plan as indicated by the provider. Take any medications as prescribed. If you have any questions about your prescription, ask the pharmacist. This treatment plan is based on the information you have provided to us today. Incomplete disclosure of your medical history, past treatments, or current medications may affect the effectiveness of this treatment. Call 911 anytime you think you may need emergency care. For example, call if:You have severe trouble breathing.You have a seizure.Call your doctor now or seek immediate medical care if:You have trouble breathing.You have a fever with a stiff neck or a severe headache.You have pain or pressure in your chest or belly.You have a fever or cough that returns after getting better.You feel very sleepy, dizzy, or confused.You are not urinating.You have severe muscle pain.You have severe weakness, or you are unsteady.You have medical conditions that are getting worse.Watch closely for changes in your health, and be sure to contact your doctor if:You do not get better as expected.You are having a problem with your medicine. You participated in a [facility] request, considered an asynchronous visit where you provide your symptoms and medical history, and a treatment plan is formulated based on your submission. A treatment plan and patient education were provided based on your submission. Noncompliance with labs or recommendations may result in adverse outcomes. If symptoms persist or worsen, you should seek in-person care or call 911 immediately for further evaluation. Plan Of Treatment Pending Test Test Name Order Date COMPREHENSIVE METABOLIC PANEL (29015) URIC ACID (905) 02/21/2025 CBC (INCLUDES DIFF/PLT) (6399) URINALYSIS, COMPLETE (5463) 02/21/2025 LIPID PANEL, STANDARD (7600) 02/21/2025 THYROID PANEL WITH TSH (7444) 02/21/2025 Insurance Providers Payer Name Payer Address Payer Phone Subscriber Number Group Number Insured Name Patient Relationship to Insured Coverage Start Date Coverage End Date [employer] [address] [address] [place] [address] [id number] Cristian Damian Self - patient is the insured Medical (General) History Medical History History ICD Code DEPRESSION
[2025-03-03 07:18] LABS: MANUAL DIFF FLAG NO
[2025-03-03 07:56] LABS: Hematocrit 43.9 % (42.0-52.0); Hemoglobin 14.5 g/dl (14.0-18.0); Imm Gran Abs Auto 0.02 X10*3/uL (0.00-0.03); Imm Gran Pct Auto 0.3 % (0.0-0.4); Lymphocytes Absolute Auto 1.1 X10*3/uL (1.2-4.9); Mean Corpuscular HGB Conc 33.0 g/dl (31.0-36.0); Mean Corpuscular Hemoglobin 28.3 pg (27.0-33.0); Mean Corpuscular Volume 85.7 fL (80.0-98.0); NRBC Abs Auto 0.000 X10*3/uL (0.0-0.012); NRBC Pct Auto 0.0 /100WBC (0.0-0.2); Platelet Count 212 X10*3/uL (160-400); Red Blood Count 5.12 X10*6/uL (4.60-5.80); White Blood Count 5.9 X10*3/uL (4.8-10.8)
[2025-03-03 08:24] LABS: Cannabinoid Screen Urine Not Detected (Not Detect)
[2025-03-03 08:32] LABS: Anion Gap 12 (12-20); Blood Urea Nitrogen 22 mg/dL (9-16); Calcium 9.4 mg/dL (8.4-10.2); Carbon Dioxide 28 mmol/L (22-29); Chloride 103 mmol/L (96-108); Estimated Glomerular Filt Rate > 60; Potassium 4.1 mmol/L (3.3-5.1); Sodium 139 mmol/L (135-145)
[2025-03-03 08:53] LABS: Free T4 (Free Thyroxine) 0.92 ng/dL (0.71-1.85)
[2025-03-03 08:57] LABS: Vitamin B12 687 pg/mL (200-900)
== END 2025-03-03 06:58 | disposition home or self-care (01) ==
LOC: HO.LAB 06:57
PROVIDERS: PCP Internal Medicine; Visit Provider Psychiatry & Neurology Psychiatry
DX: F41.1 Generalized anxiety disorder (principal); F39 Unspecified mood [affective] disorder; Z13.1 Encounter for screening for diabetes mellitus; Z13.21 Encounter for screening for nutritional disorder
CPT/HCPCS: 80048; 80307; 82306; 82607; 83036; 84439; 85025

== ENCOUNTER 2025-03-03 09:00 | Outpatient (RCR) | payer OTHER, SELFPAY ==
[2025-03-01 09:34] VITALS: BMI 33.0
[2025-03-01 09:35] VITALS: BP 108/60; PULSE 80; TEMP 37.2
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
--- NOTE | 2025-03-02 19:09 | P.HPPSP_ITS ---
[facility] Date of Service: 03/02/25 Chief Complaint: depression,anxiety Sources of Information: patient interviewed, chart reviewed and crisis/core team assessment reviewed [facility] Narrative: Patient is a , employed 54 yo male who recently completed [facility] and is stepping down to [facility] ongoing therapeutic support and medication management in the context of adverse life events, legal problems pertaining to family and health and evolving medical problems. He is known to [facility] from admission in December for struggles with anxiety in the context of psychosocial stressors at at home and the workplace. He reports a history of occasional anxiety and depressive symptoms and long standing issues with anger, impulsive gambling and says he has relied on daily cannabis use to manage. 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 Does it is a high stress job and his boss is atrocious . Stressors include deterioration of his marriage and adversarial relationship with his 17 yo son. He feels marginalized by his family and coworkers. Chronic struggles with low frustration tolerance and anger. Impulsive behaviors are chronic and persistent regardless of mood state. Unlike his admission to [facility] where he had vague passive SI, today he denies any SI. In fact says he only a few times in the past ever had experienced SI even d espite significant stressors. Alejandra been sleeping in my car . Restraining order by his keeps him from returning home and is currently involved in legal charges. Has few supports or friends. Says he is glad to be back at [facility] but is stressed about work situation. Denies any current SI, urge, plan intention. DEnies any history of AH or VH. No history of psychosis or manic symptoms. COntinues on oxcarbazepine which has been helpful for irritability and anger, feels more calm and regulated. Denies any side effects. CURRENT MEDICATIONS: Wellbutrin XL 300 mg qam Klonopin 0.5 mg prn oxcarbazepine 450 mg BID hydroxyzine 25 mg prn cetirizine-pseudoephedrine prn Past Psychiatric History: No prior IPLOC, PHP, respite, detox/rehab admissions SA: denies SIB: denies Aggression or antisocial behaviors: denies (although says there is a lot of verbal aggression and arguemnts between himself and 17 yo son. Impulsive behaviors, gambling Psychiatrist: Joan Carver [facility]ATHO[facility]ASHER Therapist: Naya Eagle PCP: Dr. Lane [facility] Medical History (Updated 01/03/25 @ 19:07 by Paula Partida MD) High cholesterol Prediabetes Sleep apnea Low testosterone Narrative: Overall healthy No chronic health conditions No h/o medical hospitalization for illness or injury Surgeries: denies Seizures: denies Concussions/TBI: x 2 or 3, in childhood - LOC x2 hit wall, fall from seesaw can you fix that from Ht:?5'4 Wt:208 lbs ALL:hayfever Family History: Depression anxiety and addiction in the family His father on are couch ( probably intentional overdose Social History: Lives at home with and 2 sons Diagnostics Vital Signs (24Hr): BMI result Body Mass Index 33.0 Meds/Allergies Allergies Allergies Allergy/AdvReac Type Severity Reaction Status Date / Time No Known Allergies Allergy Verified 12/30/24 12:04 Mental Status Exam Mental Status Exam Narrative: Alert, oriented, in no acute distress. Calm, cooperative, engaged. No psychomotor agitation or neurovegetative retardation. Eye contact maintained. Mood depressed, affect reactive. Speech normal. Thought process linear, coherent. Thought content related to stressors, transient hopelessness, denies SI or HI. No paranoia or delusional content elicited. No evidence of psychosis. Insight and judgment - fair but adequate. Assessment & Plan Assessment & Plan (1) MDD (major depressive disorder), recurrent severe, without psychosis: Status: Acute Code(s): F33.2 - Major depressive disorder, recurrent severe without psychotic features (2) Other specified persistent mood disorders: Status: Acute Code(s): F34.89 - Other specified persistent mood disorders (3) Other impulse disorders: Status: Acute Code(s): F63.89 - Other impulse disorders Assessment and Plan: r/o ADHDr/o other ICD (4) PTSD (post-traumatic stress disorder): Status: Acute Code(s): F43.10 - Post-traumatic stress disorder, unspecified (5) Cannabis use disorder: Status: Acute Code(s): F12.90 - Cannabis use, unspecified, uncomplicated Plan Admit to [facility] VS reviewed on admission continue regular medications for now Routine lab work as indicated EKG, routine for baseline QTc for medication considerations as indicated UDS as indicated [facility] reviewed Continue to monitor as per protocol I certify that the patient needs IOP Services for a minimum of 9 hours per week of therapeutic services. I certify the patient is experiencing symptoms of such intensity that they are unable to be safely treated in a less intensive setting and would otherwise require admission to a more intensive level of care.? Patient educated on: diagnosis, medication risk/benefits and substance abuse Informed Consent: understands Reason for continued partial hosp. stay Substantial Risk for: inability to function and med/psych decompensation Certification I certify that the patient needs IOP Services for a minimum of 9 hours per week of therapeutic services. I certify the patient is experiencing symptoms of such intensity that they are unable to be safely treated in a less intensive setting and would otherwise require admission to a more intensive level of care.? Time Spent With Patient Time: Total time managing care of this patient today __60__ minutes.
--- NOTE | 2025-03-03 14:02 | HO.PHP ---
Patient?s case was opened during weekly team treatment meeting
== END 2025-03-03 23:59 | disposition home or self-care (01) ==
LOC: HO.IOP 09:00
PROVIDERS: Visit Provider Psychiatry & Neurology Psychiatry
DX: F33.2 Major depressive disorder, recurrent severe without psychotic features (principal); F34.89 Other specified persistent mood disorders; F63.89 Other impulse disorders; F43.10 Post-traumatic stress disorder, unspecified; F12.90 Cannabis use, unspecified, uncomplicated; Z79.899 Other long term (current) drug therapy
CPT/HCPCS: 90791; S9480